=== PATIENT | male | born 1985 | race African-American/Black ===

== ENCOUNTER 2022-07-05 14:59 | Emergency (ER) | payer SELFPAY ==
[~2022-07-05] VITALS: Ht 182.9 cm; Wt 86.2 kg
--- NOTE | 2022-07-05 15:07 | NUR ---
from detox treatment, had seizure episode lasted 3 mins non-compliant on meds, last alcohol this morning, BG 109. PLACED ON BED, AAOX4, BREATHING EVEN AND UNLABORED SATURATING AT 98%RA.
[2022-07-05] MEDS ORDERED: LEVETIRACETAM (500MG) 1,000 MG in IV NS 0.9% 100 ML IV SCH (15:30)
[2022-07-05] MEDS ORDERED: LEVETIRACETAM (500MG) 1,000 MG in IV NS 0.9% 100 ML IV ONE (15:30)
[2022-07-05] MEDS ORDERED: IV NS 0.9% 1,000 ML BAG IV ONE (15:30)
--- NOTE | 2022-07-05 15:30 | NUR ---
BLOOD DRAWN AND SENTTO LAB
[2022-07-05 15:49] LABS: BASOPHILS # (AUTO) 0.1 K/uL (0.0-0.2); BASOPHILS % (AUTO) 0.9 % (0.0-2.0); EOSINOPHILS % (AUTO) 0.3 % (0.0-6.0); HEMATOCRIT 42 % (39-51); LYMPHOCYTES # (AUTO) 0.9 K/uL (0.8-4.8); LYMPHOCYTES % (AUTO) 10.6 % (20.0-44.0); MEAN CORPUSCULAR HGB CONC 34 g/dl (31.0-36.0); MEAN CORPUSCULAR VOLUME 102 fL (80-96); MONOCYTES # (AUTO) 0.5 K/uL (0.1-1.30); NEUTROPHILS # (AUTO) 6.7 K/uL (1.8-8.9); NEUTROPHILS % (AUTO) 82.2 % (43.0-81.0); PLATELET COUNT (AUTO) 246 K/uL (150-450); RED BLOOD CELL COUNT(AUTO) 4.08 MIL/uL (4.5-6.0); WHITE BLOOD COUNT (AUTO) 8.2 K/uL (4.3-11.0)
[2022-07-05 15:59] LABS: CALCIUM, SERUM 9.2 mg/dL (8.5-10.1); CREATININE 0.9 mg/dL (0.6-1.3); POTASSIUM 3.9 mmol/L (3.5-5.1)
[2022-07-05 16:05] LABS: BILIRUBIN,DIRECT 0.4 mg/dL (0.0-0.2); BILIRUBIN,TOTAL 1.4 mg/dL (0.2-1.0)
[2022-07-05 17:00] LABS: BAND % (MANUAL) 3 % (0.0-5.0); LYMPHOCYTES % (MANUAL) 14 % (16-48); MONOCYTES % (MANUAL) 7 % (0-11.0); NEUTROPHILS % (MANUAL) 76 (42-76)
--- NOTE | 2022-07-05 18:11 | NUR ---
urine sample sent to lab
[2022-07-05] MEDS ORDERED: LEVE500T9 PO (18:36)
--- NOTE | 2022-07-05 18:48 | NUR ---
IV removed. Catheter intact and site benign. Pressure and 4x4 applied to site. No bleeding noted.Patient discharged to home in stable condition. Written and verbal after care instructions given. Patient verbalizes understanding of instruction.
[2022-07-05 20:08] VITALS: BP 135/85
== END 2022-07-05 18:48 | disposition home or self-care (01) ==
LOC: ER 15:02
DX: R56.9 Unspecified convulsions (principal); R25.2 Cramp and spasm; Z79.899 Other long term (current) drug therapy
CPT/HCPCS: 99285; 96365; 93005; 70450; 85025; 80048; 80076; 85007; 36415; 82962; 80320; 80307; J7030; A4624; J1953; G0480